=== PATIENT | female | born 1945 | race Caucasian/White ===

== ENCOUNTER → 2019-10-18 15:45 | Outpatient (CLI) | payer MEDICARE, SELFPAY ==
--- NOTE | 2019-10-18 | DI.ECHO.S_ITS ---
[place] [facility]---------+ [facility] +---------+ : : [address] : [address] : : : : [id number] : : : : Phone: [phone]+ Echocardiogram Report + + :Name: CORI HASKINS Study Date: 10/18/2019 Height: 63 in : :[facility] Weight: 125 lb : : Gender: Female BSA: 1.6 m2 : :: 1945 Age: 74 yrs BP: 154/64 mmHg: :Reason For Study: SOB : :Ordering Physician: Yvette : :Sheri Performed By: Daiana Maldonado : + + Interpretation Summary The left ventricle is normal in size, wall thickness, and systolic function without any focal wall motion abnormalities with the ejection fraction visually estimated to be 60-65%. Diastolic parameters suggest probable normal left ventricular diastolic function and normal filling pressures. The right ventricle is normal in size and function. The right ventricular systolic pressure is estimated to be at least 34 mmHg based on an estimated right atrial pressure of 8 mm Hg. The left atrium is moderately dilated while right atrial size is normal. There is mild mitral regurgitation and mild to moderate tricuspid regurgitation. There is no other significant valvular heart disease. Procedure: A two-dimensional transthoracic echocardiogram with color flow and Doppler was performed. The study quality was technically adequate. There is no prior echocardiogram noted for this patient. The patient was in sinus bradycardia with heart rates between 51-57 bpm during the exam. Left Ventricle: The left ventricle is normal in size, wall thickness, and systolic function without any focal wall motion abnormalities. There is no ventricular septal defect visualized. The ejection fraction is estimated to be 60-65%. Diastolic parameters suggest probable normal left ventricular diastolic function and normal filling pressures. Right Ventricle: The right ventricle is normal in size and function. Atria: The left atrium is moderately dilated. Right atrial size is normal. There is no Doppler evidence for an interatrial shunt. Mitral Valve: There is mild to moderate mitral annular calcification. The mitral valve leaflets appear mildly thickened, but open well. There is mild mitral regurgitation. Aortic Valve: The aortic valve is trileaflet. There is mild aortic valve sclerosis. The aortic valve opens well. There is trace aortic regurgitation. Tricuspid Valve: The tricuspid valve leaflets are thin and pliable. There is mild to moderate tricuspid regurgitation. The right ventricular systolic pressure is estimated to be at least 34 mmHg based on an estimated right atrial pressure of 8 mm Hg. Pulmonic Valve: The pulmonic valve is not well seen, but is grossly normal. There is a trace or physiologic amount of pulmonic regurgitation. There is no other significant valvular heart disease. Great Vessels: The aortic root is normal size. The ascending aorta is normal in size. The aortic arch is normal in size. The IVC is dilated (diameter is greater than 2.1 cm) yet it collapses greater than 50% with a sniff. This suggests a right atrial pressure of 8 mm Hg. Pericardium/ Pleura There is no pericardial effusion. MMode/2D Measurements & Calculations LVIDd: 3.8 cm LVOT diam: 1.7 cm LVIDs: 2.7 cm Ao root diam: 2.9 cm FS: 29.6 % Aortic Jxn: 2.3 cm EPSS: 0.15 cm asc Aorta Diam: 2.9 cm IVSd: 0.84 cm Ao Arch Diam (Prox Trans): 2.4 cm LVPWd: 0.87 cm LV salvador. diameter/BSA (cm/m^2): 2.4 LV sys. diameter/BSA (cm/m^2): 1.7 LA A2 area: 22.6 cm2 RA long axis: 4.8 cm LA A4 area: 16.1 cm2 RA area: 15.3 cm2 LA length (vol): 4.6 cm RA vol: 41.8 ml LA vol: 67.2 ml RA : 26.4 ml/m2 LA vol index: 42.5 ml/m2 IVC diam: 2.3 cm RVD1 (basal): 3.4 cm RVD2 (mid): 2.2 cm Doppler Measurements & Calculations Ao V2 max: 95.7 cm/sec LVOT Max Yonas: 71.2 cm/sec Ao V2 mean: 63.3 cm/sec LV V1 max P.0 mmHg Ao max P.7 mmHg LV V1 VTI: 18.3 cm Ao mean P.8 mmHg MAITE(I,D): 1.7 cm2 Ao V2 VTI: 23.2 cm MAITE(V,D): 1.6 cm2 sev ratio: 0.79 MAITE indexed to BSA (cm^2/m^2): 1.1 MV E max yonas: 86.1 cm/sec TR max yonas: 257.0 cm/sec MV A max yonas: 55.1 cm/sec TR max P.4 mmHg MV E/A: 1.6 PA V2 max: 67.6 cm/sec Med Peak E' Yonas: 7.3 cm/sec PA V2 mean: 47.7 cm/sec E/E' med: 11.9 PA mean P.0 mmHg Lat Peak E' Yonas: 8.2 cm/sec PA Accel Time: 0.20 sec E/E' lat: 10.5 E/e' average: 11.2 MV dec time: 0.17 sec MV P1/2t: 49.2 msec MV P1/2t max yonas: 86.5 cm/sec SV(LVOT): 39.7 ml MVA(P1/2t): 4.5 cm2 Reading Physician:RANDY
== END ==
PROVIDERS: PCP Physician Assistant Medical; Referring Provider Physician Assistant Medical; Visit Provider Physician Assistant Medical
DX: I08.1 Rheumatic disorders of both mitral and tricuspid valves (principal); R06.02 Shortness of breath
CPT/HCPCS: 93306

== ENCOUNTER → 2021-02-01 13:34 | Outpatient (CLI) | payer MEDICARE, SELFPAY ==
--- NOTE | 2021-02-01 | DI.ECHO.S_ITS ---
[place] [facility]---------+ [facility] +---------+ : : [address] [place] : : : : [id number] : : : : Phone: [phone]+ Echocardiogram Report + :Name: CORI HASKINS Study Date: 02/01/2021 Height: 63 in : :[facility] ReadingLocation: Weight: 127 lb : : Gender: Female BSA: 1.6 m2 : :: 1945 Age: 75 yrs BP: 144/73 mmHg: :Reason For Study: SHORTNESS OF BREATH : :Ordering Physician: CIERRA, : :JEFF Khoury Performed By: Anni Borges : :Referring: JEFF NORTON P.A-C : + Interpretation Summary Normal left ventricle size with ejection fraction 60-65%. Mildly dilated left atrium. Mild aortic valve sclerosis. Mild mitral annular calcification. Mild mitral regurgitation. Mild tricuspid regurgitation. Comparison is made with the echocardiogram of 10/18/2019, there has been no significant change. Procedure: A two-dimensional transthoracic echocardiogram with color flow and Doppler was performed. The study quality was technically adequate. Comparison is made with the echocardiogram of 10/18/2019. The patient was in sinus bradycardia with heart rates between 48-59 bpm during the exam. Left Ventricle: The left ventricle is normal in size and wall thickness. The ejection fraction is estimated to be 60-65%. There are no focal wall motion abnormalities. Diastolic parameters suggest probable normal left ventricular diastolic function and normal filling pressures. Right Ventricle: The right ventricle is normal in size and function. Atria: The left atrium is mildly dilated. Right atrial size is normal. There is no Doppler evidence for an interatrial shunt. Mitral Valve: There is mild mitral annular calcification. The mitral valve leaflets appear mildly thickened, but open well. There is mild mitral regurgitation. Aortic Valve: The aortic valve is trileaflet. The aortic valve opens well. There is mild aortic valve sclerosis. There is no aortic valve stenosis. No aortic regurgitation is present. Tricuspid Valve: The tricuspid valve leaflets are thin and pliable. There is mild tricuspid regurgitation. The right ventricular systolic pressure is estimated to be at least 19 mmHg based on an estimated right atrial pressure of 3 mm Hg. Pulmonic Valve: The pulmonic valve leaflets are thin and pliable; valve motion is normal. There is no pulmonic valvular regurgitation. Great Vessels: The aortic root is normal size. The IVC is of normal diameter and collapses greater than 50% with a sniff. This suggests a low right atrial pressure of 3 mm Hg. Pericardium/ Pleura There is no pericardial effusion. There is no pleural effusion. MMode/2D Measurements & Calculations LVIDd: 3.9 cm LVOT diam: 1.8 cm LVIDs: 2.6 cm Ao root diam: 3.0 cm FS: 32.8 % asc Aorta Diam: 2.8 cm IVSd: 0.77 cm Ao Arch Diam (Prox Trans): 2.3 cm LVPWd: 0.56 cm LV salvador. diameter/BSA (cm/m^2): 2.4 LV sys. diameter/BSA (cm/m^2): 1.6 LA A2 area: 18.3 cm2 RA long axis: 5.2 cm LA A4 area: 18.7 cm2 RA area: 17.0 cm2 LA length (vol): 4.9 cm RA vol: 47.1 ml LA vol: 59.1 ml RA : 29.6 ml/m2 LA vol index: 37.1 ml/m2 IVC diam: 1.2 cm RVD1 (basal): 3.2 cm TAPSE: 2.0 cm Doppler Measurements & Calculations Ao V2 max: 80.5 cm/sec LVOT Max Yonas: 74.2 cm/sec Ao V2 mean: 54.5 cm/sec LV V1 max P.2 mmHg Ao max P.6 mmHg LV V1 VTI: 20.4 cm Ao mean P.4 mmHg MAITE(I,D): 2.7 cm2 Ao V2 VTI: 19.5 cm MAITE(V,D): 2.4 cm2 sev ratio: 1.0 MAITE indexed to BSA (cm^2/m^2): 1.7 MV E max yonas: 84.0 cm/sec TR max yonas: 200.8 cm/sec MV A max yonas: 62.9 cm/sec TR max P.1 mmHg MV E/A: 1.3 PA V2 max: 81.1 cm/sec Med Peak E' Yonas: 9.2 cm/sec PA V2 mean: 56.2 cm/sec E/E' med: 9.1 PA mean P.4 mmHg Lat Peak E' Yonas: 10.5 cm/sec PA pr(Accel): 7.1 mmHg E/E' lat: 8.0 E/e' average: 8.6 MV dec time: 0.24 sec SV(LVOT): 52.3 ml Electronically signed by: Caterina Holcomb on [place] Physician:02/01/2021 03:47 PM
== END ==
PROVIDERS: PCP Physician Assistant Medical; Referring Provider Physician Assistant Medical; Visit Provider Physician Assistant Medical
DX: I08.3 Combined rheumatic disorders of mitral, aortic and tricuspid valves (principal); R06.02 Shortness of breath
CPT/HCPCS: 93306